=== PATIENT | female | born 1960 | race Hispanic/Latino ===

== ENCOUNTER 2017-06-18 07:25 | Inpatient (IN) | payer MEDICARE, MEDICAID ==
[2017-06-18] MEDS ORDERED: Piperacillin/Tazobactam 3.375 GM VIAL ONE (07:57)
[2017-06-18 08:07] LABS: #Eosinphils 0.1 thou/uL (0.0-0.7); #Lymphocytes 3.1 thou/uL (1.20-3.40); #Monocytes 0.4 thou/uL (0.11-0.59); #Neutrophils 3.1 thou/uL (1.40-6.50); %Lymphocytes 46.2 % (21.0-51.0); %Monocytes 5.3 % (0.0-10.0); Hematocrit 27.6 % (36.0-47.0); Mean Platelet Volume 8.9 fL (7.4-10.4); White Blood Cell (WBC) Count 6.7 thou/uL (4.8-10.8)
[2017-06-18 08:10] LABS: Anion Gap 15 mmol/L (-14-95); Critical Call POC Critical Value; Lactate 10.92 mmol/L (0.50-2.20); POC Est. GFR-MDRD-African-Amer 20 (2-60); POC Estimated GFR-MDRD 17 (2-60); T. Carbon Dioxide 41.1 mmol/L (1.0-85.0); pH (Venous) 7.071 (7.35-7.45); vO2 Saturation-calc 89.1 % (0.0-100.0)
[2017-06-18 08:16] LABS: PTT 35.1 SEC (22.9-36.1); Prothrombin Time 17.5 SEC (12.0-14.7)
[2017-06-18 08:25] LABS: ALT (SGPT) 28 U/L (8-55); AST (SGOT) 35 U/L (5-34); Alkaline Phosphatase 99 U/L (40-150); Anion Gap 20 mmol/L (10-20); BUN (Urea Nitrogen) 47 mg/dL (9.8-20.1); Bilirubin, Total 0.4 mg/dL (0.2-1.2); Calc. Creatinine Clearance 0 mL/min (70-130); Calcium 8.1 mg/dL (7.8-10.44); Carbon Dioxide 26 mmol/L (22-29); Chloride 100 mmol/L (98-107); Estimated GFR-MDRD 16; Protein, Total 6.2 g/dL (6.0-8.3)
[2017-06-18 08:28] LABS: Troponin I 0.032 ng/mL (< 0.028)
[2017-06-18] MEDS ORDERED: Fentanyl 20 MCG/ML 250 ML ONE (08:33)
--- NOTE | 2017-06-18 08:36 | RAD ---
SINGLE VIEW OF CHEST: Date: 06/18/17 COMPARISON: 03/28/17. HISTORY: Chest pain and shortness of breath. FINDINGS: Single view of the chest shows an enlarged but stable cardiomediastinal silhouette. An endotracheal tube is seen with its tip between the clavicles. The patient is status post sternotomy. A NG tube co urses off the inferior aspect of the film. There appear to be infiltrates in the left lobe, unchange d. This could also represent scarring. IMPRESSION: 1. Left lower lobe infiltrate. 2. Appropriate position of lines and tubes. POS: [facility]
[2017-06-18] MEDS ORDERED: Sodium Chloride 0.9% 1,000 ML IV SCH (09:19)
[2017-06-18] MEDS ORDERED: CCU Electrolyte Replacement 1 EACH FS ONE (09:19)
[2017-06-18] MEDS ORDERED: Ondansetron HCl/PF 4 MG/2 ML Vial IVP PRN (09:19)
[2017-06-18] MEDS ORDERED: CCU Insulin Drip FS ONE (09:19)
[2017-06-18] MEDS ORDERED: Sedation Protocol FS ONE (09:19)
[2017-06-18] MEDS ORDERED: Acetaminophen 650 MG Suppository PR PRN (09:19)
[2017-06-18] MEDS ORDERED: Dextrose 5% in Water 1,000 ML IV PRN (09:30)
[2017-06-18] MEDS ORDERED: Dextrose 50% Abboject 50 ML SYRINGE SLOW IVP PRN (09:30)
[2017-06-18 09:33] LABS: Bilirubin Negative (Negative); Blood, Urine Moderate (Negative); Glucose, Urine (Dipstick) 250 mg/dL (Negative); Ketone, Urine Negative (Negative); Nitrite Negative (Negative); Protein, Urine (Dipstick) 300 mg/dL (Neg-Trace); Urobilinogen 0.2 mg/dL (0.2-1.0)
[2017-06-18 09:37] LABS: Bacteria/HPF 4+ HPF (None Seen); Hyaline Casts/LPF 0-3 HYALINE CAST LPF (0-3 Hyaline); Squamous Epithelial 0-3 HPF (0-3); WBC/HPF 21-50 HPF (0-3)
[2017-06-18 09:50] LABS: Amphetamine Not Detected (NotDetected); Methadone Not Detected (NotDetected); Methamphetamine Not Detected (NotDetected)
[2017-06-18] MEDS ORDERED: Magnesium Oxide 400 MG TAB PO PRN ×2 (10:11)
[2017-06-18] MEDS ORDERED: Potassium Chloride 40 MEQ in Sodium Chloride 0.9% 250 ML 250 ML IVPB PRN (10:11)
[2017-06-18] MEDS ORDERED: Potassium Chloride 20 MEQ TAB PO PRN (10:11)
[2017-06-18] MEDS ORDERED: Potassium Phosphate 9 MMOL in Sodium Chloride 0.9% 100 ML IVPB PRN (10:11)
[2017-06-18] MEDS ORDERED: Magnesium 2 GM/NS 0.9% 100 ML 2 GM in Premix Bag 1 BAG IVPB PRN (10:11)
[2017-06-18] MEDS ORDERED: Potassium Chloride 40 MEQ in Premix Bag 1 BAG IVPB PRN (10:11)
[2017-06-18] MEDS ORDERED: Potassium Phosphate 15 MMOL in Sodium Chloride 0.9% 250 ML 250 ML IV PRN (10:11)
[2017-06-18] MEDS ORDERED: Potassium Phosphate 12 MMOL in Sodium Chloride 0.9% 250 ML 250 ML IV PRN (10:11)
[2017-06-18] MEDS ORDERED: CCU ELECTROLYTE REPLACEMENT PROTOCOL FS PRN (10:11)
[2017-06-18 10:22] LABS: Oxyhemoglobin 87.2 % (94.0-97.0); Sodium 145 mmol/L (135-148)
[2017-06-18 10:23] LABS: Mode CPR; Modified Allen's Test NOT DONE; Vent NO
[2017-06-18 10:24] LABS: Oxyhemoglobin 97.5 % (94.0-97.0); Sodium 137 mmol/L (135-148)
[2017-06-18 10:26] LABS: Mechanical Tidal Volume 500 ml; Mode IMV; Modified Allen's Test NOT DONE; Vent YES
--- NOTE | 2017-06-18 10:48 | CON ---
DATE OF CONSULTATION: 06/18/2017 NEPHROLOGY CONSULTATION REASON FOR CONSULTATION: Elevated creatinine. HISTORY OF PRESENT ILLNESS: This is a very pleasant 57-year-old female who presented to the hospital after cardiac arrest. The patient has a history of noncompliance, baseline creatinine in the 2s. Her creatinine today was 4 with normal potassium. No further history can be obtained. The patient has severe lactic acidosis. PAST MEDICAL HISTORY: Based on previous records significant for hypertension, diabetes mellitus, anemia, amputation of fingers and legs, and congestive heart failure. REVIEW OF SYSTEMS: Unobtainable. MEDICATIONS: List reviewed. FAMILY HISTORY: Positive for colon cancer. PHYSICAL EXAMINATION: GENERAL: Patient is resting. VITAL SIGNS: Afebrile, pulse 70, breathing at 16, blood pressure was 128/70. OBJECTIVE: See above. HEAD/NECK: Normocephalic. Atraumatic. EYES: EOMI. No deformity. EARS: Clear. No ulcers. NOSE: Intact. No lesions. MOUTH: Clear. No discharge. THROAT: Clear. No exudate. LUNGS: Clear. No crackles. CARDIAC: S1, S2. No rub. ABDOMEN: Benign. BS+. GENITALIA/RECTUM: Osorio absent. BACK/EXTREMITIES: Edema 0+ Ulcer- NEUROLOGICAL: Examination could not be obtained. SKIN: Rash- Bruise- LYMPHATICS: Edema- Ulcer- RESPIRATORY: She is intubated. LABORATORY DATA: Show potassium 4.4, creatinine 3.01. ASSESSMENT AND RECOMMENDATIONS: 1. Stage 4 chronic kidney disease. No indication for dialysis. 2. Hypertension, stable. 3. Cardiac arrest. 4. Anemia. 5. Sepsis. 6. Overall prognosis is extremely poor. MTDD
[2017-06-18] MEDS ORDERED: Lorazepam 2 MG/ML VIAL SLOW IVP PRN (10:59)
[2017-06-18] MEDS ORDERED: DISCONTINUE PREVIOUS NARCOTIC PAIN MEDICATIONS AND BENZODIAZEPINES FS SCH (10:59)
[2017-06-18] MEDS ORDERED: Fentanyl 20 MCG/ML 250 ML IVPB SCH (10:59)
[2017-06-18] MEDS ORDERED: Propofol 1,000 MG/100 ML VIAL IV PRN (10:59)
[2017-06-18 11:13] VITALS: BMI 41.6
[2017-06-18 12:35] LABS: Troponin I 0.169 ng/mL (< 0.028)
[2017-06-18] MEDS: Sodium Chloride 0.9% 1,000 ML IV SCH (13:43)
[2017-06-18 14:03] LABS: Magnesium 1.7 mg/dL (1.6-2.6); Phosphorus 2.7 mg/dL (2.3-4.7)
[2017-06-18] MEDS ORDERED: Sodium Bicarb 50 MEQ/50 ML Abboject 8.4% SYRINGE ONE (15:33)
[2017-06-18] MEDS ORDERED: EPINEPHrine 1 MG/10 ML Abboject SYRINGE ONE (15:33)
--- NOTE | 2017-06-18 15:57 | CON ---
DATE OF CONSULTATION: 06/18/2017 CRITICAL CARE TIME: 40 minutes. REASON FOR CONSULTATION: Out of hospital arrest. HISTORY OF PRESENT ILLNESS: Ms. Pyle is a 57-year-old woman who is a patient of Dr. Bryanna Sorenson. She has a previous history of aortic valve replacement. She also recently underwent venous ablation. Her family states she has had spells in the past where she has cough and shortness of br eath. They state that this was similar to previous episodes. This was a witnessed event. She stat e she began to cough, had shortness of breath and stopped breathing. Her stepfather performed CPR. EMS was summoned. They state this began around 6:00 in the morning. After reviewing the ER notes, it appeared she came in asystole. She underwent CPR and returned with spontaneous circulation at 7 :30. Patient appears to be undergoing CPR for an hour and a half. At this point, she has intermitt ent cough. She is not on sedation and has no spontaneous movements. She also has a left fundal bra nch block that is chronic. PAST MEDICAL HISTORY: Diabetes mellitus, cardiomyopathy, aortic valve replacement and chronic kidne y disease. HOME MEDICATIONS: Crestor, MiraLax, Levemir, Neurontin, Lasix, Coreg and aspirin. REVIEW OF SYSTEMS: Unobtainable. PHYSICAL EXAMINATION: GENERAL: She is currently intubated with no spontaneous movement. VITAL SIGNS: Blood pressure 153/60, pulse 56 and temperature afebrile. NEUROLOGIC: The patient is alert and oriented times 3 with no focal neurologic deficits. HEENT: Sclerae without icterus. Mouth has moist mucous membranes with normal pallor. NECK: No JVD. Carotid upstroke brisk. No bruits bilaterally. LUNGS: Clear to auscultation with unlabored respirations. BACK: No scoliosis or kyphosis. CARDIAC: Regular rate and rhythm with normal S1 and S2. No S3 or S4 noted. No significant rubs, murmurs, thrills, or gallops noted throughout the precordium. PMI is not displ aced. There is no parasternal heave. ABDOMEN: Soft, nontender, nondistended. No peritoneal signs present. No hepatosplenomegaly. No a bnormal striae. EXTREMITIES: 2-3+ pitting edema. SKIN: No gross abnormalities. PERTINENT LABORATORY DATA: Lactic acid 10, creatinine 3.01 and potassium 4.4. IMPRESSION: 1. Out of hospital arrest. 2. Chronic left bundle branch block. 3. Respiratory failure. RECOMMENDATIONS: Ms. Pyle has undergone a cooling protocol. She has a chronic left bundle bra nch block with a followup troponin at 0.1. I do not feel this is an acute event from an unstable pl aque causing an [place]. This may have been rhythm related. This may also be due to cough syncope. I c annot completely rule out DVT/PE. We would recommend a lower extremity duplex. Given the time of C MD, it appears her prognosis is poor. This has been discussed with the family. We will continue th e cooling protocol and reassess in 24 hours.
[2017-06-18] MEDS: Cefepime 2 GM in Sodium Chloride 0.9% 100 ML IVPB SCH (17:49)
[2017-06-18] MEDS: Heparin 5,000 UNITS/ML VIAL SC SCH ×2 (17:49→20:14)
[2017-06-18 18:04] LABS: #Lymphocytes 0.5 thou/uL (1.20-3.40); #Monocytes 0.4 thou/uL (0.11-0.59); #Neutrophils 6.8 thou/uL (1.40-6.50); %Eosinophils 0.3 % (0.0-10.0); %Lymphocytes 6.2 % (21.0-51.0); %Monocytes 5.4 % (0.0-10.0); Hematocrit 26.8 % (36.0-47.0); Mean Platelet Volume 9.2 fL (7.4-10.4); White Blood Cell (WBC) Count 7.7 thou/uL (4.8-10.8)
[2017-06-18 18:09] LABS: PTT 32.2 SEC (22.9-36.1); Prothrombin Time 17.5 SEC (12.0-14.7)
[2017-06-18 18:18] LABS: Anion Gap 13 mmol/L (10-20); BUN (Urea Nitrogen) 49 mg/dL (9.8-20.1); Calc. Creatinine Clearance 38 mL/min (70-130); Calcium 8.2 mg/dL (7.8-10.44); Carbon Dioxide 28 mmol/L (22-29); Chloride 102 mmol/L (98-107); Estimated GFR-MDRD 18; Magnesium 1.7 mg/dL (1.6-2.6); Phosphorus 2.6 mg/dL (2.3-4.7)
[2017-06-18 18:25] LABS: Troponin I 0.228 ng/mL (< 0.028)
--- NOTE | 2017-06-18 18:40 | CON ---
DATE OF CONSULTATION: 06/18/2017 SERVICE: Pulmonary Medicine. REASON FOR CONSULTATION: Intubated patient. HISTORY OF PRESENT ILLNESS: The patient is a 57-year-old female with past medical history significant for cough-induced syncope. This has happened on multiple occasions. She had an episode today where she had a cough syncope and did not get back. Because of this, the family called the E MS services 2-3 minutes later. They arrived to find her in asystole. Chest compressions were initi ated and she was subsequently brought to the emergency department. She cannot provide any additiona l elements of the history. In the ER, after several minutes of chest compressions, PEA rhythm was o btained. This prompted additional rounds of CPR. After a protracted course, spontaneous return of circulation was reestablished. The family is suggesting to me that prior to the cough-induced synco pe, she was in her usual state of health and had no specific complaints. PAST MEDICAL HISTORY: 1. Type 2 diabetes mellitus. 2. Hypertension. 3. Dyslipidemia. 4. Chronic systolic heart failure (EF of 15%). 5. Chronic kidney disease, stage 4. 6. Anemia of chronic disease. 7. Psoriasis. PAST SURGICAL HISTORY: 1. Left above knee amputation. 2. Right lower extremity digits, 2 through 5 amputation. 3. Coronary artery bypass graft. 4. section x2. 5. Left rotator cuff repair. 6. Aortic valve repair in 2003. 7. Cholecystectomy. ALLERGIES: AMOXICILLIN, IODINE, ERYTHROMYCIN, MACROBID, SHELLFISH. MEDICATIONS: List of her inpatient medications were reviewed. Multiple updates were made at this t jahaira. FAMILY HISTORY: Noncontributory. SOCIAL HISTORY: Negative for alcohol, tobacco or illicit drug use. REVIEW OF SYSTEMS: Cannot be obtained as the patient is currently not responding. PHYSICAL EXAMINATION: VITAL SIGNS: Afebrile, pulse 61, blood pressure 154/58, respirations 14, saturation 98% on 30% FIO2 and PEEP of 5. HEENT: Normocephalic, atraumatic. Sclerae are white, conjunctivae pink. Oral and nasal mucosa is moist without lesions. LUNGS: Decent air entry. There are rhonchi and crackles both present. I do not appreciate a prolo nged expiratory phase or wheezing. HEART: Normal rate, regular. ABDOMEN: Soft, nontender, nondistended, bowel sounds positive. MUSCULOSKELETAL: No cyanosis or clubbing. There is diffuse 1+ pitting in the right lower extremity . GENITOURINARY: Osorio catheter in place. NEUROLOGIC: The patient is having episodes of contraction from head to toe which are happening less frequently than once than 5 seconds. This is consistent with myoclonic jerking. Her pupils are fi xed and nonresponsive with light. She is overbreathing the ventilator. She does not demonstrate a good cough or gag. She does not withdraw from any noxious stimuli in 3 of her extremities. LABORATORY DATA: WBC is 6.7, hemoglobin 8.7, platelets 132,000. INR 1.4. PH 7.57, pCO2 of 26, pO2 500 on 100% FiO2 at the time. Lactate is 1.7, which is cleared from 10.0. Troponin 0.169 and gent ly up trending. BNP 1200. Creatinine 3.01, which is above baseline. Basic metabolic profile and l iver function studies are otherwise unremarkable. IMAGING: Chest x-ray demonstrates left mid lung zone infiltrate, consistent with possible infection . Endotracheal tube is in good position. There is an enteric catheter coursing below the level of the diaphragm and midline. I can see the tip, however. ASSESSMENT: 1. Acute hypoxic respiratory failure. 2. Community-acquired pneumonia. 3. Cough-induced syncope. 4. Asystole. 5. Acute kidney injury on chronic kidney disease, stage 4. 6. Non-ST elevation myocardial infarction. PLAN: Back off the patient's rate and tidal volume a little bit. FIO2 will be minimized to maintai n saturations of 92%. She is currently on the cooling protocol for the next 24 hours. So long as s he remains hemodynamically stable, we will just simply support her with the ventilator and antibioti cs. In 24-48 hours, she does not have a meaningful response so far as neurologic recovery goes, the patient's family has already suggested that they would like to transition over to comfort care only . That being said, they would like to give her brain 1-2 days to see if it comes around to touch. Pulmonary Critical Care will continue to follow. CRITICAL CARE TIME: 30 minutes.
--- NOTE | 2017-06-18 18:55 | PDOC.EVN ---
Event Note - Event Note Event Note: EKG unchanged from previous. CK-MB has been trending up - now 20.5. Troponin I indeterminate at 0.228. Discussed case with Dr. Gu, FM attending. Will start on heparin as this appears to be an NSTEMI. Consult cardiology in the morning.
[2017-06-18] MEDS ORDERED: Heparin 25,000 units/D5W 500 ML IVPB SCH (19:00)
[2017-06-18] MEDS ORDERED: Heparin 10,000 UNITS/ 10 ML VIAL SLOW IVP SCH (19:00)
--- NOTE | 2017-06-18 19:20 | HP ---
I obtained the history and physical from the ER record as the patient has prolonged cardiac arrest a nd is comatose. CHIEF COMPLAINT: Prolonged cardiac arrest. HISTORY OF PRESENT ILLNESS: Ms. Pyle is an obese 57-year-old female, who evidently lainez d a coughing spell at home. The family reports according to the ER records that the patient coughed and then lost consciousness. EMS was called and found the patient to be in asystole. They perform ed ACLS for 30 minutes and transported to our emergency room. She has not regained consciousness. They were able to reestablish spontaneous circulation and she is now admitted to the Intensive Care Unit. PHYSICAL EXAMINATION: VITAL SIGNS: Currently, her blood pressure is 145/64, her heart rate is 62. She is on the ventilat or, temperature is 96.8, and cooling protocol has been instituted. She is comatose. EAR, NOSE, AND THROAT: As stated intubated. CARDIOVASCULAR: PMI is slightly displaced. Heart sounds are distant. No gallop or murmur noted. LUNGS: Breath sounds are diminished. No consolidation. ABDOMEN: Obese, flat, soft otherwise. LABORATORY DATA: CBC: White count 6700, hemoglobin 8.7, hematocrit 27.6 with an MCV of 86.2. Chem istries: Sodium 142, potassium 4.4, chloride 100, bicarbonate is now 26, BUN is 47, creatinine is 3 .01. Her lactic acid level is 10. Initial troponin is 0.032. Her BNP is 1274. Chest x-ray shows a left lower lobe infiltrate. ASSESSMENT: Prolonged cardiac arrest, possibly secondary to respiratory followed by cardiac arrest secondary to left lower lobe pneumonia. PLAN: Admit, begin antibiotics for community-acquired pneumonia. Continue fluids and supportive ca re. Her overall prognosis is extremely poor. She is also seen in consultation by Dr. Mosher and by Ronan Nieto of the management architect service.
--- NOTE | 2017-06-18 20:27 | ULT ---
ULTRASOUND WITH DOPPLER DUPLEX VENOUS LOWER EXTREMITIES BILATERAL: HISTORY: A 57-year-old female with bilateral upper lower swelling. TECHNIQUE: Color flow Doppler, spectral waveform analysis of pulsed Doppler, and lopez-scale imaging with compre ssion and augmentation, were used to evaluate the bilateral common femoral, femoral, popliteal, post erior tibial, and superficial femoral, veins; and the proximal portions of the profunda femoral and greater saphenous, veins. FINDINGS: There is clot causing incomplete compressibility of the right greater saphenous vein. All of the re st of the veins of the bilateral upper extremities are free of thrombosis. There is edema in the so ft tissues throughout the bilateral lower extremities. IMPRESSION: 1. Superficial venous thrombosis of the right greater saphenous vein. 2. Otherwise no evidence of deep venous thrombosis. 3. Soft tissue edema throughout the bilateral lower extremities. ROCKY Walker POS: [facility]
[2017-06-18] MEDS ORDERED: FLU VACC QS2017-18 36 mo. & older 0.5 ML SYRINGE IM ONE (21:00)
--- NOTE | 2017-06-18 21:23 | HP-2 ---
DATE OF ADMISSION: 06/18/2017 ADMITTING RESIDENT: Evan Antoine DO ADMITTING ATTENDING: Alex Gu MD CODE STATUS: FULL. HISTORIAN: ER records and the patient's family. CHIEF COMPLAINT: Cardiac arrest/found down. HISTORY OF PRESENT ILLNESS: This is a 57-year-old female, brought to the emergency departm ent via EMS after going into cardiac arrest at home. Per the family at about 0640 hours this lydia moreno, she went to the bathroom, she started coughing and syncopized. The patient has a history of coug h with cough syncope, but at this time, she stopped breathing and did not spontaneously resume daniel lee, 911 was called, EMS arrived and found the patient be in asystole, she got approximately 30 min utes of CPR prior to arriving to the emergency department at [facility]. From EMS, she receiv ed 2 ounce of epinephrine and 1 round of bicarbonate and was intubated with tube. She arrived to the emergency department and was still in asystole and the intubation was achieved by Dr. Dolan . She received 2 more units of epinephrine and 1 unit of bicarbonate and ROSC was obtained at appro ximately 0730 hours. Family states she recently had a vein removed in the right leg, but she has ot herwise been in normal health. They do say she has recently, and the cough has been slightly worse. PAST MEDICAL HISTORY: Diabetes mellitus type 2, hypertension, mitral valve prolapse, psoriasis, CHF with an EF of 15-20%, anemia of chronic disease, hyperlipidemia, and CKD stage 4. PAST SURGICAL HISTORY: Includes left AKA, right digits two through five amputation, CABG, x2, left rotator cuff repair, aortic valve replacement, cholecystectomy. ALLERGIES: AMOXICILLIN, IODINE, ERYTHROMYCIN, MACROBID, SHELLFISH. MEDICATIONS: Unable to obtain, patient is intubated and family does not know her home medications. FAMILY HISTORY: Noncontributory. SOCIAL HISTORY: Per previous records, the patient has no history of tobacco abuse, only occasionall y use alcohol and previous record show she has a remote history of drug use. REVIEW OF SYSTEMS: Unable to obtain due to patient being intubated; however, family does report cou gh, increasing bloating and syncope recently. PHYSICAL EXAMINATION: VITAL SIGNS: Blood pressure 140/69, pulse 64, respiratory rate 12 on ventilator. T-max 96.6, pulse ox 100% on ventilator, weight 113 kilograms. GENERAL: Patient is obese. She is intubated. EYES: Pupils sluggish. Conjunctivae within normal limits. ENT: Tympanic membranes pearly lopez without bulging or erythema. Endotracheal tube in place. NECK: Supple, with no lymphadenopathy, thyromegaly, or bruit. CARDIOVASCULAR: Regular rate and rhythm. No murmurs, rubs, or gallops. Radial pulses palpable maura aterally. RESPIRATORY: Breath sounds coarse diffusely. SKIN: Warm and dry with no cyanosis. She does have vesicular lesions of right lower extremity. ABDOMEN: Soft, bowel sounds positive x4. No masses or distention. EXTREMITIES: No clubbing, no cyanosis, 2+ pitting edema on right. Positive for left AKA and positi ve for right toe amputations. NEUROLOGIC: GCS is 3T. Patient is currently intubated. IMAGING: EKG shows sinus rhythm with PVCs and left bundle branch block. Chest x-ray showed left lo wer lobe infiltrate. LABORATORY DATA: 1. Lactate 10.92. 2. CBC: White blood cell count 6.7, hemoglobin 8.7, hematocrit 27.6, platelets 132, bands 46%. 3. CMP: Sodium 142, potassium 4.4, chloride 100, bicarbonate 26, BUN 47, creatinine 3.01, glucose 278, calcium 8.1, total bilirubin 0.4, AST 35, ALT 28, alkaline phosphatase 99, total protein 6.2, a lbumin 3.2. 4. Cardiac enzymes: CK-MB 2.6, troponin I 0.032, BNP 1274. ASSESSMENT AND PLAN: This is a 67-year-old female who presents with; 1. Cardiopulmonary arrest, status post , likely secondary to acute respiratory failure caused by HCAP, admit to ICU. Continue ventilatory support, sedation, and electrolyte replacement. Dr. Osman wynn consulted. Trend cardiac enzymes, blood culture, and urine culture. 2. Healthcare-associated pneumonia. The patient was hospitalized 03/28 to 03/30. Continue IV anti biotics, fluids and ventilatory support. Blood cultures pending, monitor closely. Patient is not c urrently meeting sepsis criteria. 3. Congestive heart failure. BNP is elevated, which may be caused by cardiac arrest. We will give gentle fluids at this time and monitor intake and output. 4. Lactic acidosis. Lactic acid 10.0. We will give IV fluids and trend. 5. Acute on chronic kidney disease, stage 4. Dr. Mosher consulted. Medications renally dosed. Nicole tor creatinine and electrolytes. 6. Diabetes mellitus type 2. Accu-Cheks and insulin. 7. Hypertension. Monitor blood pressure, treat as needed. 8. Anemia of chronic disease at baseline. We will monitor. 9. Troponin elevation likely secondary to #1 as well as chronic kidney disease. Troponin I of 0.03 2, is actually lower than patient's troponin I of 0.049 on 03/29. 10. Code status: FULL. 11. Deep venous thrombosis prophylaxis, heparin. DISPOSITION AND LENGTH OF STAY: Patient will be admitted at least 2 days. Symptomatic medications will be provided. History and physical exam as well as management discussed with Dr. Gu who is in agreement.
[2017-06-19 00:14] LABS: Prothrombin Time 18.1 SEC (12.0-14.7)
[2017-06-19 00:20] LABS: #Lymphocytes 0.5 thou/uL (1.20-3.40); #Monocytes 0.3 thou/uL (0.11-0.59); #Neutrophils 7.7 thou/uL (1.40-6.50); %Basophils 0.1 % (0.0-1.0); %Eosinophils 0.1 % (0.0-10.0); %Lymphocytes 5.5 % (21.0-51.0); %Monocytes 3.9 % (0.0-10.0); Hematocrit 28.6 % (36.0-47.0); Mean Platelet Volume 9.5 fL (7.4-10.4); Red Blood Cell (RBC) Count 3.38 mill/uL (4.20-5.40); White Blood Cell (WBC) Count 8.5 thou/uL (4.8-10.8)
[2017-06-19 00:21] LABS: Anion Gap 16 mmol/L (10-20); BUN (Urea Nitrogen) 47 mg/dL (9.8-20.1); Calc. Creatinine Clearance 41 mL/min (70-130); Calcium 8.3 mg/dL (7.8-10.44); Carbon Dioxide 23 mmol/L (22-29); Chloride 104 mmol/L (98-107); Estimated GFR-MDRD 19; Magnesium 1.7 mg/dL (1.6-2.6); PTT 120.5 SEC (22.9-36.1); Phosphorus 2.7 mg/dL (2.3-4.7)
[2017-06-19 00:27] LABS: Troponin I 0.153 ng/mL (< 0.028)
[2017-06-19] MEDS: Sodium Chloride 0.9% 1,000 ML IV SCH (01:38)
[2017-06-19 03:42] LABS: #Lymphocytes 0.6 thou/uL (1.20-3.40); #Monocytes 0.3 thou/uL (0.11-0.59); #Neutrophils 7.3 thou/uL (1.40-6.50); %Eosinophils 0.4 % (0.0-10.0); %Lymphocytes 7.3 % (21.0-51.0); %Monocytes 3.1 % (0.0-10.0); Hematocrit 29.5 % (36.0-47.0); Mean Platelet Volume 9.2 fL (7.4-10.4); Red Blood Cell (RBC) Count 3.56 mill/uL (4.20-5.40); White Blood Cell (WBC) Count 8.1 thou/uL (4.8-10.8)
[2017-06-19 04:01] LABS: ALT (SGPT) 33 U/L (8-55); AST (SGOT) 43 U/L (5-34); Alkaline Phosphatase 93 U/L (40-150); Anion Gap 16 mmol/L (10-20); BUN (Urea Nitrogen) 48 mg/dL (9.8-20.1); Bilirubin, Total 0.9 mg/dL (0.2-1.2); Calc. Creatinine Clearance 42 mL/min (70-130); Calcium 8.5 mg/dL (7.8-10.44); Carbon Dioxide 24 mmol/L (22-29); Chloride 104 mmol/L (98-107); Estimated GFR-MDRD 20; Globulin 3.3 g/dL (2.4-3.5); Protein, Total 6.7 g/dL (6.0-8.3)
--- NOTE | 2017-06-19 06:32 | PDOC.FM ---
- Subjective Subjective: Ms. Pyle is currently on the sedation protocol and body temp is 89.9. She is unresponsive to pain, pupils are fixed, no posturing noted, no gag or corneal reflex. VSS. I have reviewed recommendations by Dr. Pyle and d/c'd the heparin and insulin drip as we are not thinking this is cardiac in origin and glucose has been fairly well controlled. Noted that the BNP was elevated even above her baseline so would consider diuresis, nursing reports UO has been good. - Objective MAR Reviewed: Yes Vital Signs & Weight: Vital Signs (12 hours) Temp Pulse Resp Pulse Ox 06/19/17 06:00 26 H 06/19/17 04:00 29 H 06/19/17 02:33 77 06/19/17 00:00 25 H 06/18/17 22:00 18 06/18/17 21:58 64 06/18/17 20:00 92.6 F L 59 L 19 99 Weight Weight 106.7 kg Most Recent Monitor Data Heart Rate from ECG 68 NIBP 171/68 NIBP BP-Mean 108 Respiration from ECG 25 SpO2 100 I&O: 06/17/17 06/18/17 06/19/17 06:59 06:59 06:59 Intake Total 1211.9 Output Total 2160 Balance -948.1 Result Diagrams: 06/19/17 03:33 06/19/17 03:33 Radiology Reviewed by me: Yes (CXR LLL infiltrate) Phys Exam - Physical Examination Constitutional: NAD HEENT: moist MMs Respiratory: wheezing present rhonchi, rales Cardiovascular: RRR Gastrointestinal: soft, non-tender trace edema no corneal, gag reflex, no posturing, not withdrawing from pain, pupils fix ed Dx/Plan (1) Cardiac arrest Code(s): I46.9 - CARDIAC ARREST, CAUSE UNSPECIFIED Status: Acute Plan: s/p with ROSC after intubation and adminstration of epi and bicarb. Pt is currently undergoing the cooling protocol and warming will begin again at 9 am today. Appears from Dr. Nieto's notes appreciate recs that he has spoken with family and they have elected for comfort measures only and we will give a brief waiting period to looks for signs of neuro recovery. Possible etiologies include sepsis from pna identified, NSTEMI--less likey appreciate cards recs, hypercapneic resp failure, acute rEF CHF exacerbation, last EF was around 15% in March. I have stopped the heparin drip as we do not believe this is an NSTEMI (2) Acute respiratory failure Code(s): J96.00 - ACUTE RESPIRATORY FAILURE, UNSP W HYPOXIA OR HYPERCAPNIA Status: Acute Qualifiers: Respiratory failure complication: hypercapnia Qualified Code(s): J96.02 - Acute respiratory failure with hypercapnia Plan: pH was 7.1 at time of admission, not hypoxemic, but hypercapneic to 100ish. Vent settings have been adjusted accordingly after repeat ABG showed we could reduce FiO2 and the rate. Current settings SIMV, rate 13, VT 400, FiO2 30%, PEEP 5, PS 5 (3) HCAP (healthcare-associated pneumonia) Code(s): J18.9 - PNEUMONIA, UNSPECIFIED ORGANISM Status: Acute Plan: Will treat as hospitalized within last 90 days. On cefepime, van, levaquin 2/2 to amox allergy will not use zosyn. (4) Acute exacerbation of CHF (congestive heart failure) Code(s): I50.9 - HEART FAILURE, UNSPECIFIED Status: Acute Qualifiers: Congestive heart failure type: systolic Qualified Code(s): I50.23 - Acute on chronic systolic (congestive) heart failure Plan: Consider diuresis. BNP was 174 (5) Superficial vein thrombosis Code(s): I82.890 - ACUTE EMBOLISM AND THROMBOSIS OF OTHER SPECIFIED VEINS Status: Acute Plan: No evidence of DVT on u/s, but superficial R greater saphenous thrombosis. We will use heparin TID for DVT ppx with renal impairment (6) Diabetes type 2, uncontrolled Code(s): E11.65 - TYPE 2 DIABETES MELLITUS WITH HYPERGLYCEMIA Status: Chronic Qualifiers: Diabetes mellitus complication status: with circulatory complication Diabetes mellitus complication detail: with other circulatory complications Diabetes mellitus detention insulin use: with exterminator helper use Qualified Code(s) : E11.59 - Type 2 diabetes mellitus with other circulatory complications; E11.65 - Type 2 diabetes mellitus with hyperglycemia; E11.65 - Type 2 diabetes mellitus with hyperglycemia; E11.65 - Type 2 diabetes mellitus with hyperglycemia; E11.65 - Type 2 diabetes mellitus with hyperglycemia; Z79.4 - [facility]FP (current) use of insulin; Z79.4 - intermediate manager (current) use of insulin; Z79.4 - [facility] (current) use of insulin; Z79.4 - intermediate manager (current) use of insulin Plan: We will d/c insulin drip and POC accuchecks every 4 hours with mod SS I. Last A1c was in 2016 was 11.1. Glucose goal of <200 in ICU has been achieved on the drip (7) HTN (hypertension) Code(s): I10 - ESSENTIAL (PRIMARY) HYPERTENSION Status: Chronic Qualifiers: Plan: monitor, BP has been fine not currently on meds (8) CKD (chronic kidney disease) stage 4, GFR 15-29 ml/min Code(s): N18.4 - CHRONIC KIDNEY DISEASE, STAGE 4 (SEVERE) Status: Chronic Plan: at baseline Cr 2.5 today and GFR <30
[2017-06-19] MEDS ORDERED: Insulin Regular 300 UNITS/3 ML VIAL SC PRN (07:22)
[2017-06-19] MEDS ORDERED: Dextrose 50% Abboject 50 ML SYRINGE SLOW IVP PRN (07:22)
[2017-06-19] MEDS ORDERED: Dextrose 5% in Water 1,000 ML IV PRN (07:22)
[2017-06-19] MEDS: Pantoprazole 40 MG VIAL IVP SCH (08:22)
[2017-06-19] MEDS: Heparin 5,000 UNITS/ML VIAL SC SCH ×3 (09:11→20:07)
[2017-06-19] MEDS: Insulin Regular 300 UNITS/3 ML VIAL SC PRN ×2 (09:19→12:24)
[2017-06-19 09:31] LABS: Anion Gap 15 mmol/L (10-20); BUN (Urea Nitrogen) 47 mg/dL (9.8-20.1); Calc. Creatinine Clearance 44 mL/min (70-130); Calcium 8.6 mg/dL (7.8-10.44); Carbon Dioxide 23 mmol/L (22-29); Chloride 105 mmol/L (98-107); Estimated GFR-MDRD 21
--- NOTE | 2017-06-19 10:01 | PRG ---
DATE OF SERVICE: 06/19/2017 SERVICE: Pulmonary Medicine. INTERVAL HISTORY: The patient is doing poorly from a neurologic standpoint. From a cardiovascular and respiratory standpoint, she is doing fairly well. She cannot provide any additional elements of the history. She got cooled overnight and is in the process of rewarming at this time. Otherwise, there were no events. PHYSICAL EXAMINATION: VITAL SIGNS: Afebrile, pulse 69, blood pressure 173/85, respiration 17, saturation 100% on 21% FiO2 . HEENT: Normocephalic, atraumatic. Sclerae are white, conjunctivae pink. Oral and nasal mucosa is moist without lesions. LUNGS: Decent air entry. There is no prolonged expiratory phase. HEART: Normal rate, regular. ABDOMEN: Soft, nontender, nondistended, bowel sounds positive. MUSCULOSKELETAL: No cyanosis or clubbing. There is trace to 1+ pitting in the bilateral lower extr emities. GENITOURINARY: Osorio catheter in place. NEUROLOGIC: She does not have any gag or cough reflexes. She does over-breathe the ventilator. Th ere is no withdrawal from noxious stimuli throughout. Corneal reflexes are absent. She thrusts her tongue repeatedly. LABORATORY DATA: WBC 8.1, hemoglobin 9.6, and platelets 140,000. Creatinine 2.50 and gently down t rending. Basic metabolic profile is otherwise unremarkable. Liver function studies are normal. Ur ine drug screen is unremarkable. Blood cultures x2 and influenza A and B are unremarkable. IMAGING: Ultrasound of the lower extremity demonstrates a superficial venous thrombosis of the righ t greater saphenous vein with otherwise no evidence of DVT. There is some soft tissue edema. ASSESSMENT: 1. Acute hypoxic respiratory failure, resolved. 2. Community-acquired pneumonia. 3. Cough-induced syncope. 4. Asystole. 5. Anoxic brain injury. 6. Acute kidney injury on chronic kidney disease IV, improving. 7. Non-ST elevation myocardial infarction. PLAN: The sedation will be held. Neurology consultation will be placed to see whether or not an EE G is warranted. My suspicion is that the patient had suffered a severe anoxic brain injury. She co ntinues to over breathe the ventilator, but is not demonstrating any additional meaningful neurologi c activity. She is currently in the rewarming process. In 24-48 hours, we should have a better tammy a whether or not she is likely to make any kind of a meaningful recovery. In the event that she hall s not, the family has already suggested to me that they would like to transition over to comfort onl y. CRITICAL CARE TIME: 30 minutes.
--- NOTE | 2017-06-19 12:09 | PRG ---
DATE OF SERVICE: 06/19/2017 SUBJECTIVE: This is a 57-year-old female being seen for acute kidney injury. The patient is not making any meaningful recovery. PHYSICAL EXAMINATION: GENERAL: Patient is resting. VITAL SIGNS: Afebrile, pulse 71, breathing at 16, blood pressure 156/72. HEAD: Normocephalic, atraumatic. NECK: Supple. No JVD. CHEST: Symmetrical and clear. CARDIOVASCULAR: Shows S1, S2. ABDOMEN: Soft. Bowel sounds positive. EXTREMITIES: edema. LABORATORY DATA: Show hemoglobin 9.6, creatinine 2.3. ASSESSMENT AND RECOMMENDATIONS: 1. Acute kidney injury, improved. 2. Chronic kidney disease, stage IV, stable. 3. Hypokalemia. Recommend 20 mEq potassium replacement. 4. Uremia, stable. 5. Medications based on glomerular filtration rate are appropriate. Prognosis is poor. I will sign off. Please reconsult as needed. MTDD
--- NOTE | 2017-06-19 13:25 | ADD-PRG ---
DATE OF SERVICE: 06/19/2017 This is an addendum to the note of Dr. Thao Roberts. Ms. Pyle remains comatose. Her blood pressure is 160/70, her pulse rate is 72. She is of cour se still on the ventilator. LABORATORY DATA: Sodium 140, potassium 3.3, chloride 105. Her bicarbonate is 23, BUN is 47, creati nine 2.35. These are stable from yesterday. Her overall prognosis remains extremely poor. The fam sarina has had this discussed with him is on board for comfort care at this time. Her troponin levels did not rise quite to the level of NSTEMI. This more likely reflects mild sight loss during the pro longed code.
[2017-06-19] MEDS: Furosemide 20 MG/2 ML VIAL SLOW IVP SCH (13:31)
[2017-06-19 13:41] LABS: Anion Gap 16 mmol/L (10-20); BUN (Urea Nitrogen) 45 mg/dL (9.8-20.1); Calc. Creatinine Clearance 46 mL/min (70-130); Calcium 8.6 mg/dL (7.8-10.44); Carbon Dioxide 22 mmol/L (22-29); Chloride 106 mmol/L (98-107); Estimated GFR-MDRD 22
[2017-06-19] MEDS: Cefepime 2 GM in Sodium Chloride 0.9% 100 ML IVPB SCH (16:00)
[2017-06-19 17:11] LABS: Anion Gap 16 mmol/L (10-20); BUN (Urea Nitrogen) 45 mg/dL (9.8-20.1); Calc. Creatinine Clearance 46 mL/min (70-130); Calcium 8.5 mg/dL (7.8-10.44); Carbon Dioxide 23 mmol/L (22-29); Chloride 106 mmol/L (98-107); Estimated GFR-MDRD 22
[2017-06-19 21:59] LABS: Anion Gap 18 mmol/L (10-20); BUN (Urea Nitrogen) 44 mg/dL (9.8-20.1); Calc. Creatinine Clearance 46 mL/min (70-130); Calcium 8.6 mg/dL (7.8-10.44); Carbon Dioxide 21 mmol/L (22-29); Chloride 108 mmol/L (98-107); Estimated GFR-MDRD 22
[2017-06-20] MEDS: Insulin Regular 300 UNITS/3 ML VIAL SC PRN ×4 (04:00→16:28)
--- NOTE | 2017-06-20 05:48 | CON ---
DATE OF CONSULTATION: 06/19/2017 REFERRING PROVIDER: Leonel Nieto MD REASON FOR CONSULTATION: Anoxic brain injury. HISTORY OF PRESENT ILLNESS: Ms. Pyle is a pleasant 57-year-old female who has been co nsulted for evaluation of anoxic brain injury. History is obtained from patient's medical chart as the patient is unable to provide. Apparently, the patient was at home early yesterday morning and a round 6:40 in the morning, she had passed out. The patient was noted to be not breathing that is wh y a family member had called EMS. On arrival of EMS, the patient was found to be in asystole. She was given CPR for approximately 30 minutes and brought to the [facility]. She receiv ed 2 rounds of epinephrine and 1 round of bicarbonate and was intubated. According to the nurseterrie being admitted to the hospital, she has not been on any sedation. There has not been any moveme nt to sternal rub or normal pressure. She has no pupillary response, cough, or gag response. She h as not been on sedation since being admitted to the hospital. PAST MEDICAL HISTORY: Significant for hypertension, diabetes, mitral valve prolapse, psoriasis, CHF , anemia of chronic disease, hyperlipidemia, and chronic kidney disease stage 4. 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 CURRENT MEDICATIONS: Please review MAR. ALLERGIES: Include AMOXICILLIN, IODINE, ERYTHROMYCIN, MACROBID, and SHELLFISH. FAMILY HISTORY: Noncontributory. SOCIAL HISTORY: No history of smoking or illicit drug use. She has occasional alcohol use. REVIEW OF SYSTEMS: Unable to obtain. PHYSICAL EXAMINATION: VITAL SIGNS: Blood pressure of 158/56, pulse of 75, temperature of 97.2, respirations of 30 on [facility] anical ventilation. GENERAL: Intubated, nonsedated female, in no apparent distress. RESPIRATORY: Clear to auscultation bilaterally. CARDIOVASCULAR: Regular rate and rhythm. NEUROLOGIC: Mental status: The patient is intubated and nonsedated, nonresponsive to verbal or nox ious stimuli. Cranial nerves: Pupils are 3 mm and nonreactive. Corneal reflexes are absent bilate rally. She does not have any cough or gag reflex. She does breathe over the ventilator machine. M otor exam showed flaccid bilateral upper extremities. No response to pressure in the bilatera l upper extremities or no response to sternal rub. LABORATORY DATA: I reviewed, which included CBC, BMP, urinalysis, and urine drug screen, which is s ignificant for hemoglobin 9.6, hematocrit of 29.5, potassium of 3.2, BUN of 44, creatinine of 2.28, glucose of 148. Urinalysis showing 21-50 wbc's with 4+ bacteria and trace the leukocyte esterase, o therwise negative. IMPRESSION: 1. Cardiopulmonary arrest, status post resuscitation. 2. Anoxic brain injury. PLAN: Ms. Pyle is a 57-year-old female who presented after having a cardiopulmonary a rrest. She had a prolonged resuscitation. Since being admitted, she has not been responsive to any verbal or noxious stimuli. Her exam is suggestive of a severe anoxic brain injury. I have explain ed to the patient's family that the prognosis is poor. I will obtain a CT scan of the head without contrast on tomorrow morning as well as an EEG for further evaluation. Continue supportive care. Thank you for your consultation.
[2017-06-20] MEDS ORDERED: Vancomycin HCl 1 GM in Premix Bag 1 BAG IVPB SCH (06:00)
--- NOTE | 2017-06-20 08:44 | PDOC.FM ---
- Subjective Subjective: ESTEBAN overnight, pt still unresponsive on no sedation. Intubated. No family in room this AM. - Objective MAR Reviewed: Yes Vital Signs & Weight: Vital Signs (12 hours) Pulse Resp BP 06/20/17 06:59 85 167/67 H 06/20/17 06:00 34 H 06/20/17 04:00 37 H 06/20/17 02:27 82 06/20/17 02:00 33 H 06/20/17 00:00 31 H 06/19/17 22:32 79 06/19/17 22:00 28 H Weight Weight 106.7 kg Most Recent Monitor Data Heart Rate from ECG 85 NIBP 167/68 NIBP BP-Mean 126 Respiration from ECG 19 SpO2 94 I&O: 06/19/17 06/20/17 06/21/17 06:59 06:59 06:59 Intake Total 1211.9 926.6 Output Total 2162009 Balance -948.1 -1083.4 Result Diagrams: 06/19/17 03:33 06/19/17 21:22 <Elmer Adams K - Last Filed: 06/20/17 08:42> - Objective Vital Signs & Weight: Vital Signs (12 hours) Temp Pulse Resp BP 06/20/17 10:13 83 166/63 H 06/20/17 08:00 99.4 F 06/20/17 06:59 85 167/67 H 06/20/17 06:00 34 H 06/20/17 04:00 37 H 06/20/17 02:27 82 06/20/17 02:00 33 H 06/20/17 00:00 31 H Weight Weight 106.7 kg Most Recent Monitor Data Heart Rate from ECG 85 NIBP 166/63 NIBP BP-Mean 118 Respiration from ECG 30 SpO2 98 I&O: 06/19/17 06/20/17 06/21/17 06:59 06:59 06:59 Intake Total 1211.9 926.6 Output Total 2159 Balance -948.1 -1083.4 -165 Result Diagrams: 06/19/17 03:33 06/19/17 21:22 <Darshan West - Last Filed: 06/20/17 10:49> Phys Exam - Physical Examination Intubated Fixed dilated Neck: no nodes Respiratory: no wheezing overbreathing vent Cardiovascular: RRR Gastrointestinal: soft, no distention Musculoskeletal: pulses present GCS 3 <Elmer Adams - Last Filed: 06/20/17 08:42> Dx/Plan (1) Anoxic brain injury Status: Acute Plan: GCS 3 this AM w/ fixed pupils and no gag reflex Overbreathing the Vent to 23 on SIMV (f 13 Vt 400 21% fiO2 PEEP 5) CT brain showing diffuse loss of awad-white junction EEG w/ neuro pending Family spoken to this weekend about poor prognosis and will re-visit comfort care pending EEG results Will plan to place order to 2 mg morphine q15 min and ativan 2 mg q 15 min per crit care reccomendations in the event that comfort measures are started Will consult hospice if indicated (2) Cardiopulmonary arrest Code(s): I46.9 - CARDIAC ARREST, CAUSE UNSPECIFIED Status: Acute Plan: Cont. w/ mechanical ventilation Pressure and pulse stable off sedation/pressors Still w/ unsure eitiology Possible arrhythmia causing coughing which ultimately converted to asystole S/p rewarming protocol (3) T2DM (type 2 diabetes mellitus) Status: Acute Plan: BG levels stable mid 100's Cont. w/ moderate SSI w/ accuchecks Will hold off on restarting insulin gtt at this time (4) Anemia in chronic kidney disease (CKD) Code(s): N18.9 - CHRONIC KIDNEY DISEASE, UNSPECIFIED; D63.1 - ANEMIA IN CHRONIC KIDNEY DISEASE Status: Acute Qualifiers: Chronic kidney disease stage: stage 3 (moderate) Qualified Code(s): N18.3 - Chronic kidney disease, stage 3 (moderate); D63.1 - Anemia in chronic kidney disease Plan: stable will continue to monitor No evidence of acute bleed (5) Pneumonia Code(s): J18.9 - PNEUMONIA, UNSPECIFIED ORGANISM Status: Acute Plan: Cont. w/ current abx regimen Pt afebrile (6) CKD (chronic kidney disease) stage 4, GFR 15-29 ml/min Code(s): N18.4 - CHRONIC KIDNEY DISEASE, STAGE 4 (SEVERE) Status: Chronic Plan: stable Will continue to monitor in setting of IV diuretic usage <Elmer Adams - Last Filed: 06/20/17 08:42> Attending Addendum - Attending Addendum I personally evaluated the patient and discussed the management with Dr. Adams. I agree with the History, Examination, Assessment and Plan documented above with any addition or exceptions noted below. Patient continues to have no reflexive responses despite being off sedation. She is currently having some tongue fasciculations. CT shows loss of awad/white junction, likely signifying a catastrophic anoxic event. Patient does continue to overbreathe the vent. Awaiting EEG results to confirm anoxic pattern. There is a possibility of withdrawing active care today and progressing toward comfort measures. Palliative care has been consulted. For now, continuing antibiotics and respiratory support. <Darshan West - Last Filed: 06/20/17 10:49>
[2017-06-20] MEDS: Heparin 5,000 UNITS/ML VIAL SC SCH ×3 (09:23→21:40)
[2017-06-20] MEDS: Pantoprazole 40 MG VIAL IVP SCH (09:24)
--- NOTE | 2017-06-20 10:34 | CT ---
Addendum created by Craig Hyde MD on 06/20/2017 3:38 AM Central Time ([place] \[place]\ [place]) THIS REPORT CONTAINS FINDINGS THAT MAY BE CRITICAL TO PATIENT CARE. The findings were verbally commu nicated via telephone conference with Lena Dunlap MD at 3:37 AM CDT on 06/20/2017. The findings were acknowledged and understood. Initial Report created on 06/20/2017 3:21 AM Central Time ([place] \[place]\ [place]) EXAM: CT Head Without Intravenous Contrast CLINICAL HISTORY: 57 years old, female; Signs and symptoms; Other: Anoxic brain injury TECHNIQUE: Axial computed tomography images of the head/brain without intravenous contrast. COMPARISON: No relevant prior studies available. FINDINGS: Brain: Chronic right cerebellar infarctions noted. Limited evaluation of the mai-white matter inter face No hemorrhage. No significant white matter disease. No edema. Ventricles: Unremarkable. No ventriculomegaly. Bones/joints: Unremarkable. No acute fracture. Soft tissues: Unremarkable. Sinuses: Opacified left maxillary sinus. Air-fluid levels in the ethmoid air cells, sphenoid sinuses and right maxillary sinus Mastoid air cells: Unremarkable as visualized. No mastoid effusion. IMPRESSION: Limited evaluation of the mai-white matter interface suspect for hypoxic/anoxic injury. Continued followup recommended No intracranial hemorrhage. Sinusitis as noted Thank you for allowing us to participate in the care of your patient. Dictated and Authenticated by: Craig Hyde MD 06/20/2017 3:21 AM Central Time ([place] \[place]\ [place]) FINAL REPORT EMERGENCY AFTER HOURS CT HEAD WITHOUT IV CONTRAST: Date: 06/20/17 HISTORY: Anoxic brain injury. Follow-up evaluation. COMPARISON: 06/06/06. IMPRESSION: 1. Mai/white differentiation is not well delineated on this exam, which is suspicious for anoxic b rain injury. 2. Focus of increased density seen in the right occipital lobe. This could be artifactual, but a sm all focal area of hemorrhage measuring 5.0 mm is suspected. 3. Remote infarction right cerebellar hemisphere. 4. No evidence of hydrocephalus. 5. Sinus disease with complete opacification left maxillary antrum, air fluid level right maxillary antrum and sphenoid sinus, as well as opacification of the ethmoidal air cells. These findings may be related to intubation. Nasogastric tube is also noted in place. Findings are in agreement with the preliminary report by Renu. POS: [facility]
--- NOTE | 2017-06-20 11:07 | PDOC.CTH ---
<Calista Herrera - Last Filed: 06/20/17 13:02> Cardiology Progress Note - Subjective The pt was seen and examined. No response to gag reflux or pain stimulation. breathing over the vent. Family members are at bedside. S/p Rt Vein ablation on 06/09/17 and post procedure U/S showed no evidence of DVTs - Objective Vital Signs Temp Pulse Resp BP Pulse Ox 06/20/17 10:13 83 166/63 H 06/20/17 08:00 99.4 F 87 34 H 94 L 06/20/17 06:59 85 167/67 H 06/20/17 06:00 34 H 06/20/17 04:00 37 H 06/20/17 02:27 82 06/20/17 02:00 33 H 06/20/17 00:00 31 H Weight 235 lb 3.732 oz 06/19/17 06/20/17 06/21/17 06:59 06:59 06:59 Intake Total 1211.9 926.6 Output Total 2160 2009 215 Balance -948.1 -1083.4 -215 - Physical Examination General/Neuro: other: (GCS 3) Lungs: other: (on Vent) Heart: RRR Extremities: other: (No edema in her RLE; Lt AKA) - Telemetry Telemetry Rhythm: SR with HR 82 and LBBB - Labs Result Diagrams: 06/19/17 03:33 06/19/17 21:22 Troponin/CKMB CK-MB (CK-2) 21.6 ng/mL (0-6.6) H* 06/18/17 23:51 Troponin I 0.153 ng/mL (< 0.028) H 06/18/17 23:51 - Assessment/Plan 1. Anoxic brain injury 2ndary to Cardiopulmonary arrest with prolonged resuscitation - GCS 3 with over breathing on vent; no gag reflux or response to pain stimulation without any vent sedation; EEG possible today; followed by Neurologist 2. Chronic systolic HF - 2D echo in 04/2017 showed EF 45%, bioprostetic AV, and Mild MR and TR; cont. monitor 3. Hx of Aortic Stenosis with s/p Bioprosthetic AVR in 2009 - stable 4. HTN - Stable; cont. monitor 5. CKD stage 4 - managed by composing room supervisor 6. DM type 2 - BS check with Insulin SS; managed by PCP 7. PVD with hx of multiple amputation and s/p Rt leg vein ablation on 06/14/17 - the ablation site is cleared and no drainage noted. Cont. monitor MAR reviewed <Trey Sorenson - Last Filed: 06/20/17 15:52> Cardiology Progress Note - Objective Vital Signs Temp Pulse Resp BP Pulse Ox 06/20/17 14:20 83 173/67 H 06/20/17 14:00 39 H 06/20/17 12:00 99.9 F H 32 H 06/20/17 10:13 83 166/63 H 06/20/17 10:00 34 H 06/20/17 08:00 99.4 F 87 34 H 94 L 06/20/17 06:59 85 167/67 H 06/20/17 06:00 34 H 06/20/17 04:00 37 H Admit Weight 235 lb Weight 235 lb 3.732 oz 06/19/17 06/20/17 06/21/17 06:59 06:59 06:59 Intake Total 1211.9 926.6 Output Total 2160 2010 450 Balance -948.1 -1083.4 -450 - Labs Result Diagrams: 06/19/17 03:33 06/19/17 21:22 Troponin/CKMB CK-MB (CK-2) 21.6 ng/mL (0-6.6) H* 06/18/17 23:51 Troponin I 0.153 ng/mL (< 0.028) H 06/18/17 23:51 - Assessment/Plan Pt. was seen and eval. by me. It appears that she may have severe anoxic brain injury. Chest is clear. RRR. I agree with the A/P by the PHOTOGRAPHER SCIENTIFIC.
--- NOTE | 2017-06-20 12:03 | PRG ---
DATE OF SERVICE: 06/20/2017 SERVICE: Pulmonary Medicine. INTERVAL HISTORY: The patient is doing well from a cardiovascular and respiratory standpoint. Her mentation is terrible. She is yet to wake up or make any progress whatsoever over the previous 24 h ours. She cannot provide any additional elements of the history. Otherwise, there were no overnigh t events. PHYSICAL EXAMINATION: VITAL SIGNS: Afebrile, pulse 82, blood pressure 167/60, respirations 31, saturation 95% on 21% FiO2 and PEEP of 5. GENERAL: Patient is intubated. She has no sedation on board, but is comatose. HEENT: Normocephalic, atraumatic. Sclerae are white, conjunctivae pink. Oral and nasal mucosa is moist without lesions. LUNGS: Decent air entry with no prolonged expiratory phase, wheezing, rhonchi or crackles. HEART: Normal rate and regular. ABDOMEN: Soft, nontender, nondistended, bowel sounds positive. MUSCULOSKELETAL: No cyanosis or clubbing. There is 1+ pitting in the right lower extremity. Left lower extremity is surgically absent. GENITOURINARY: Osorio catheter in place. NEUROLOGIC: She is completely nonresponsive. She does not withdraw from noxious stimuli, cough, ga g, or have pupillary responses. Doll's eye maneuver is abnormal. Corneal reflexes are absent. She does over breathe the ventilator and continues to have some tongue thrusting. LABORATORY DATA: WBC 8.1, hemoglobin 9.6, platelets 140,000 and all stable. Creatinine 2.[address] able, BUN 44, potassium 3.2. Basic metabolic profile is otherwise unremarkable presently. Urine cu lture is growing Klebsiella which is essentially pansensitive. Blood cultures x4, influenza are oth erwise unremarkable today. IMAGING: CT of the brain overnight demonstrates complete effacement of the lopez white zone consiste nt with diffuse anoxic brain injury. A small area of hemorrhagic conversion is possible. There is a remote infarct in the right cerebellar region. No evidence of hydrocephalus. Sinusitis is eviden t. ASSESSMENT: 1. Acute hypoxic respiratory failure, resolved. 2. Community-acquired pneumonia. 3. Cough-induced syncope resulting in asystole. 4. Anoxic brain injury. 5. Acute kidney injury on chronic kidney disease, stage 4, stable. 6. Non-ST elevation myocardial infarction. PLAN: The patient appears to have suffered a devastating injury from which she is unlikely to make a meaningful neurologic recovery. After discussing options moving forward, the patient's family is likely going to transition over to comfort care only. They would like to see the results of the EEG to make certain there is no ongoing seizure activity. Supportive care will be continued until we g et the results of these studies and the family decides what the best course of action for Ms. Ephraim napoles will be. CRITICAL CARE TIME: 30 minutes.
--- NOTE | 2017-06-20 13:00 | PQF ---
MUKESH MILLERNOLAN [id number] CLINICAL DOCUMENTATION IMPROVEMENT CLARIFICATION FORM: ICD-10 Updated PLEASE DO AN ADDENDUM TO THE PROGRESS NOTE WITH ANY DOCUMENTATION UPDATES OR ADDITIONS AND CARRY THROUGH TO DC SUMMARY. THANK YOU. DATE: 06-20-17 ATTN: DR. NOLAN RODARTE / DR. AUGUSTINE MATHEW Please exercise your independent, professional judgment in responding to the clarification form. Clinical indicators are provided on the bottom of this form for your review Please check appropriate box(s): [ ] Sepsis D/T PNA [ ] Severe sepsis D/T PNA w/ acute organ dysfunciton and Septic Shock [ ] SIRS due to non-infectious process Cardiopulmonary Arrest [ ] with organ dysfunction [ ] without organ dysfunction [ ] Severe sepsis D/T PNA with acute organ dysfunction [ ] Other diagnosis [ x ] Unable to determine In addition, please specify: Present on Admission (POA): [ ] Yes [ ] No [ ] Unable to determine For continuity of documentation, please document condition throughout progress notes and discharge summary. Thank You. CLINICAL INDICATORS - SIGNS / SYMPTOMS / LABS ER: CORE TEMP 96.6 SEPSIS H&P: S/P CARDIAC ARREST AT HOME W/ CPR ACUTE RESP FAILURE ON VENT NOT CURRENTLY MEETING SEPSIS CRITERIA LACTIC ACIDOSIS ACUTE ON CHRONIC KIDNEY DISEASE CONSULT - DR. THOMAS: SEPSIS 06-19 PN ATTENDING: POSSIBLE ETIOLOGIES INCLUDE SEPSIS FROM PNA LABS: LACTATE 10.92 BANDS 46% RISK FACTORS H&P: HEATHCARE ACQUIRED PNA TREATMENTS: CPOE: ICU ON VENT IV MAXIPIME AND LEVAQUIN 06-18 / 06-19 (This form is maintained as a part of the permanent medical record) 2014 [employer]. All Rights Reserved Natasha Gamez RN, BS [email or web address] Cell [facility]
--- NOTE | 2017-06-20 13:10 | PQF ---
MUKESH MILLERNOLAN [id number] CLINICAL DOCUMENTATION IMPROVEMENT CLARIFICATION FORM: ICD-10 Updated PLEASE DO AN ADDENDUM TO THE PROGRESS NOTE WITH ANY DOCUMENTATION UPDATES OR ADDITIONS AND CARRY THROUGH TO DC SUMMARY. THANK YOU. DATE: 06-20-17 ATTN: DR. NOLAN RODARTE Please exercise your independent, professional judgment in responding to the clarification form. Clinical indicators are provided on the bottom of this form for your review Please check appropriate box: [ ] Empirically treating Gram Negative Pneumonia [ ] Empirically treating Anaerobic Pneumonia [ ] Simple Pneumonia (community acquired - nosocomial) [ x ] Pneumonia of unknown etiology [ ] Other diagnosis [ ] Unable to determine In addition, please specify: Present on Admission (POA): [ x ] Yes [ ] No [ ] Unable to determine For continuity of documentation, please document condition throughout progress notes and discharge summary. Thank You. CLINICAL INDICATORS - SIGNS / SYMPTOMS / LABS H&P: HEATHCARE ACQUIRED PNA SOB PATIENT IS INTUBATED - COMATOSED PULM CONSULT: COMMUNITY-ACQUIRED PNA 06-19 PN ATTENDING: HEALTHCARE ASSOCIATED PNA - HOSPITALIZED W/IN LAST 90 DAYS 06-18 CXR: LEFT LOWER LOBE INFILTRATE RISK FACTORS H&P: PATIENT HAS HX OF COUGH W/ COUGH SYNCOPE HOSPITALIZED 03/28 TO 03/30 TREATMENTS: CPOE: ICU ON VENT IV MAXIPIME AND LEVAQUIN 06-18 / 06-19 PULM CONSULT :PULM CONSULT: COMMUNITY-ACQUIRED PNA THANK YOU, NATASHA (This form is maintained as a part of the permanent medical record) 2015 [employer]. All Rights Reserved Natasha Gamez RN, BS [email or web address] [facility]
--- NOTE | 2017-06-20 13:31 | PQF ---
MUKESH MILLER NOLAN Wiggins [id number] U-[id number] CLINICAL DOCUMENTATION IMPROVEMENT CLARIFICATION FORM: ICD-10 Updated PLEASE DO AN ADDENDUM TO THE PROGRESS NOTE WITH ANY DOCUMENTATION UPDATES OR ADDITIONS AND CARRY THROUGH TO DC SUMMARY. THANK YOU. DATE: 06-20-17 ATTN: DR. NOLAN RODARTE Please exercise your independent, professional judgment in responding to the clarification form. Clinical indicators are provided on the bottom of this form for your review Please check appropriate box: AMI TYPE: [ ] NSTEMI [ ] AMI Type II D/T Demand Ischemia [ x ] Demand Ischemia [ ] Other [ ] Other diagnosis [ ] Unable to determine In addition, please specify: Present on Admission (POA): [ ] Yes [ ] No [ ] Unable to determine CLINICAL INDICATORS - SIGNS / SYMPTOMS / LABS H&P: TROPONIN ELEVATION LIKELY D/T CARDIOPULMONARY ARREST WELL CKD TROPONIN I OF 0.032 IS ACTUALLY LOWER THAN PTS' TROPONIN I OF 0.049 ON 03-29-17 PULM CONSULT: NSTEMI CARDIO CONSULT: CHRONIC LBBB I DO NOT FEEL THIS IS AN ACUTE EVENT FROM AN UNSTABLE [place] CAUSING AN WY. 10-15 PN ATTENDING: POSSIBLE ETIOLOGIES - NSTEMI - LESS LIKELY RISKS: H&P: SP CARDIAC ARREST - ASYSTOLE HTN; HX CABG W/ AORTIC VALVE REPLACEMENT TREATMENTS: CPOE: CCU MONITORING - ON VENT CARDIO CONSULT: CHRONIC LBBB I DO NOT FEEL THIS IS AN ACUTE EVENT FROM AN UNSTABLE [place] CAUSING AN [place]. THANK YOU, NATASHA (This form is maintained as a part of the permanent medical record) 2014 [employer]. All Rights Reserved Natasha Gamez RN, BS [email or web address] [facility]
--- NOTE | 2017-06-20 13:49 | PQF ---
MUKESH MILLERNOLAN [id number] U-[id number] CLINICAL DOCUMENTATION IMPROVEMENT CLARIFICATION FORM: ICD-10 Updated PLEASE DO AN ADDENDUM TO THE PROGRESS NOTE WITH ANY DOCUMENTATION UPDATES OR ADDITIONS AND CARRY THROUGH TO DC SUMMARY. THANK YOU. DATE: 06-20-17 ATTN: DR. NOLAN RODARTE Please exercise your independent, professional judgment in responding to the clarification form. Clinical indicators are provided on the bottom of this form for your review Please check appropriate box: [ ] Shock (please further specify type): [ ] Cardiogenic [ ] Septic [ ] Shock Unspecified [ x ] Other diagnosis __Cardiopulmonary Arrest [ ] Unable to determine In addition, please specify: Present on Admission (POA): [ ] Yes [ ] No [ ] Unable to determine For continuity of documentation, please document condition throughout progress notes and discharge summary. Thank You. CLINICAL INDICATORS - SIGNS / SYMPTOMS / LABS ER: CORE TEMP LABS: LACTIC ACIDOSIS 06-18 @ 0742 10.0 GFR 16 BUN 47 CREATININE 3.01 TROPONIN I 06-18 @ 0.130 0.032 06-18 @ 1042 0.130 06-18 @ 1117 0.169 06-18 @ 1754 0.228 06-18 @ 2351 0.153 H&P: EMILY ON CKD COMATOSE RISK FACTORS H&P: S/P CARDIOPULMONARY ARREST PNA COUGHING SYNCOPE 06-18 PULM CONSULT: NSTEMI/ ACUTE RESP FAILURE 06-18 CARDIO CONSULT: CHRONIC LBBB 06-19 PN ATTENDING: ACUTE ON CHRONIC SYSTOLIC CHF TREATMENTS: CPOE: CCU ON VENT IV Antibiotics - 06-18 / 06-19 MAXIPIME / LEVAQUIN THANK YOU, NATASHA (This form is maintained as a part of the permanent medical record) 2015 [employer]. All Rights Reserved Natasha Gamez RN, BS [email or web address] [facility]
[2017-06-20] MEDS: Furosemide 20 MG/2 ML VIAL SLOW IVP SCH (15:16)
[2017-06-20] MEDS: Cefepime 2 GM in Sodium Chloride 0.9% 100 ML IVPB SCH (17:16)
[2017-06-20] MEDS ORDERED: Morphine Sulfate 2 MG/ML SYRINGE ONE (19:50)
[2017-06-20] MEDS ORDERED: Lorazepam 2 MG/ML VIAL SLOW IVP PRN (19:50)
--- NOTE | 2017-06-20 20:03 | PRG ---
DATE OF SERVICE: 06/20/2017 SUBJECTIVE: Ms. Pyle is a 57-year-old female who presented with cardiopulmonary arres t. There has not been any significant change in her neurological status over the past 24 hours. Pe r RN, patient continues to be nonresponsive to verbal or noxious stimuli. She does not respond to n ail bed pressure. There is no pupillary reflexes present and no cough or gag reflex present. Famil y is at bedside reported no change in her exam over the past 24 hours. PHYSICAL EXAMINATION: VITAL SIGNS: Blood pressure of 169/60, pulse of 84, temperature of 100.8, respirations of 32 on mec hanical ventilation. GENERAL: Intubated, nonsedated female, in no apparent distress. RESPIRATORY: Clear to auscultation bilaterally. CARDIOVASCULAR: Regular rate and rhythm. NEUROLOGICAL: Mental status: The patient is intubated and nonsedated. She does not withdraw to no xious or verbal stimuli. Cranial nerves: Pupils are 3 mm and nonreactive. Corneal reflexes are ab sent bilaterally. She does not have cough or gag reflex. She does breathe over the ventilator mach ine. Motor exam showed flaccid bilateral upper and lower extremity. There is no response to sterna l rub or nail bed pressure in both upper and lower extremities. LABORATORY DATA AND IMAGING: Reviewed, which included CBC, BMP, which is significant for hemoglobin 9.6, hematocrit 29.5, potassium of 3.2, BUN of 44, creatinine of 2.28, glucose of 167, otherwise un remarkable. CT scan of the head was reviewed, which showed loss of lopez white matter differentiatio n diffusely with suggestive of anoxic brain injury. EEG was reviewed, which showed severe generaliz ed slowing without any epileptiform discharges or asymmetry. IMPRESSION: 1. Cardiopulmonary arrest. 2. Anoxic brain injury. PLAN: Ms. Pyle is a 57-year-old female who presented with a syncopal episode for card iopulmonary arrest. She is noted to be nonresponsive while off sedation for more than [address] scan does show loss of lopez white matter differentiation, which likely suggestive of severe ano xic brain injury. Her EEG also showed severe diffused slowing, which again is consistent with a sev ere anoxic brain injury. I have explained this to the patient's family and explained that the progn osis is very poor. No further neurological workup needed from my standpoint.
[2017-06-20 20:53] VITALS: TEMP 101.1
[2017-06-20] MEDS ORDERED: Scopolamine 1.5 mg/72 hour Patch TD SCH (23:00)
[2017-06-20 23:05] VITALS: BP 82/46
--- NOTE | 2017-06-21 15:35 | DS-2 ---
DATE OF ADMISSION: 06/18/2017 DATE OF : 06/21/2017 TIME OF : 05:40 ATTENDING: Darshan West M.D. RESIDENT: Elmer Adams M.D. CAUSE OF : 1. Acute hypoxic or hypercapnic respiratory failure secondary to out of hospital cardiac arrest, status post return of spontaneous circulation. 2. Anoxic brain injury. SECONDARY DIAGNOSES: 1. Hospital-acquired pneumonia. 2. Systolic Congestive heart failure. 3. Acute on chronic kidney disease, stage 4. 4. Type 2 diabetes mellitus. 5. Hypertension. 6. Anemia of chronic disease.0 7. Hyperlipidemia 8. Mitral Valve Prolapse HOSPITAL COURSE: The patient is a 57-year-old female, who presented to the emergency department via EMS, status post cardiac arrest at home per family at approximately 06:40 morning of admission. The patient went to the bathroom, started coughing, and had a small syncope. 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 When the patient was checked on by family, the patient stopped breathing and no pulse was found. When EMS arrived, the patient was found to be an asystole and received approximately 30 minutes CPR prior to arriving to the emergency department. On route, via EMS, received 2 ounces of IV and 1 ampule of bicarbonate and was intubated on mechanical ventilation. Upon arrival, the patient was still asystole and receiving another 2 mg of epinephrine and 1 ampule of bicarbonate. ROSC was obtained at approximately 07:30 in the ER. The patient was admitted to the intensive care unit and Critical Care, Pulmonology, Nephrology, and Cardiology were consulted. The patient was started on broad-spectrum antibiotics for HCAP with vancomycin, Levaquin, and cefepime. The patient with only troponins of 0.032, which is bit low patient's baseline from prior hospitalization. The patient was placed on cooling protocol upon achieving a full ROSC for 24 hours followed by re-warming. Discussion with family was had with the patient's poor prognosis secondary to prolonged resuscitative efforts prior to achieving ROSC. It was decided upon by family that if no meaningful response was made after 24 to 48 hours status post rewarming that comfort measures would be made for patient. CT of brain was obtained by Neurology, who was subsequently consulted showing lopez and white differentiation suspicious for anoxic brain injury, and EEG obtained the following day showing slowing of brain activity. At approximately 2100 on 06/20, after discussing findings with Neurology, family decided to proceed with comfort measures only. The patient was taken off mechanical ventilation and transitioned over to comfort care. Comfort measures with morphine and Ativan were given and the patient at 05:40 on 06/21/2017, the following morning. MTDD
== END 2017-06-21 05:40 | disposition expired | DRG 208 ==
LOC: ERS 07:25 → CCU 10:02 → ONC 06-20 22:28
PROVIDERS: ADMIT Family Medicine; ATTEND Family Medicine
PROC: 0BH17EZ Insertion of Endotracheal Airway into Trachea, Via Natural or Artificial Opening (ICD-10-PCS; principal; 2017-06-18)
PROC: 5A1945Z Respiratory Ventilation, 24-96 Consecutive Hours (ICD-10-PCS; 2017-06-18)
PROC: 5A12012 Performance of Cardiac Output, Single, Manual (ICD-10-PCS; 2017-06-18)
DX: J96.01 Acute respiratory failure with hypoxia (principal); I46.8 Cardiac arrest due to other underlying condition; G93.1 Anoxic brain damage, not elsewhere classified; I50.23 Acute on chronic systolic (congestive) heart failure; J18.9 Pneumonia, unspecified organism; N17.9 Acute kidney failure, unspecified; I13.0 Hypertensive heart and chronic kidney disease with heart failure and stage 1 through stage 4 chronic kidney disease, or unspecified chronic kidney disease; E87.2 Acidosis; N18.4 Chronic kidney disease, stage 4 (severe); I24.8 Other forms of acute ischemic heart disease; I82.811 Embolism and thrombosis of superficial veins of right lower extremity; Z68.41 Body mass index [BMI] 40.0-44.9, adult; J96.02 Acute respiratory failure with hypercapnia; R55 Syncope and collapse; Z51.5 Encounter for palliative care; E87.6 Hypokalemia; I44.7 Left bundle-branch block, unspecified; Z91.19 Patient's noncompliance with other medical treatment and regimen; E11.22 Type 2 diabetes mellitus with diabetic chronic kidney disease; E11.65 Type 2 diabetes mellitus with hyperglycemia; Z79.4 Long term (current) use of insulin; Y95 Nosocomial condition; E11.51 Type 2 diabetes mellitus with diabetic peripheral angiopathy without gangrene; Z89.612 Acquired absence of left leg above knee; Z95.2 Presence of prosthetic heart valve; I25.10 Atherosclerotic heart disease of native coronary artery without angina pectoris; Z95.1 Presence of aortocoronary bypass graft; E78.5 Hyperlipidemia, unspecified; L40.9 Psoriasis, unspecified; I34.1 Nonrheumatic mitral (valve) prolapse; R40.2433 Glasgow coma scale score 3-8, at hospital admission; D63.1 Anemia in chronic kidney disease; E66.01 Morbid (severe) obesity due to excess calories
CPT/HCPCS: 31500; 36415; 36416; 51702; 70450; 71010; 80053; 80306; 81003; 81015; 82330; 82550; 82553; 82803; 82805; 83605; 83735; 83880; 84100; 84484; 85025; 85610; 85730; 86140; 87040; 87077; 87086; 87186; 92950; 93005; 93010; 93970; 94002; 94003; 95816; 95819; 96361; 96365; 96367; 96375; 99292; A4216; C9113; G8981-GP-CN; G8982-GP-CM; J0171; J0360; J0692; J1644; J1815; J1940; J1956; J2060; J2270; J2543; J3010; J3370; J3480; J7050; J7620